=== PATIENT | female | born 1955 | race Caucasian/White ===

== ENCOUNTER 2019-12-27 01:10 | Outpatient (CLI) | payer MEDICARE, BC, SELFPAY ==
[2019-12-27 19:08] LABS: SARS-CoV-2 RNA PCR Negative
== END 2019-12-27 01:11 | disposition home or self-care (01) ==
LOC: ANHCOVIDDT 01:11
PROVIDERS: PCP Family Medicine; Visit Provider Internal Medicine Gastroenterology
DX: Z01.812 Encounter for preprocedural laboratory examination (principal); Z20.828 Contact with and (suspected) exposure to other viral communicable diseases
CPT/HCPCS: 87635; C9803; U0003

== ENCOUNTER 2019-12-29 01:16 | Day surgery (SDC) | payer MEDICARE, SELFPAY ==
[2019-12-22 15:38] VITALS: BMI 25.6
[2019-12-29 06:25] VITALS: BP 147/99; PULSE 85; RESP 20; TEMP 36.5; O2SAT 100; BMI 28.9
[2019-12-29] MEDS: LACTATED RINGERS 1,000 ML 150 ML IV CONT (06:35)
--- NOTE | 2019-12-29 06:44 | P.HP_ITS ---
History of Present Illness History of Present Illness Consent: Risks, benefits, and alternatives have been discussed and questions answered. Patient agrees to proceed with procedure. Chief complaint: Hx Colon Polyps Narrative: Divina Frazier is a 64 year old W female Referred for screening colonoscopy. Last colonoscopy was 7 years ago which time a small cecal adenomatous polyp was removed. Patient has no symptoms. No interval complaints. No family history of colon polyps or colon cancer. [facility] Past Medical History Medical History Eczema Essential hypertension Mild intermittent asthma without complication Seasonal depression Vitamin D deficiency Surgical History Surgical History (Updated 12/29/19 @ 06:46 by Rishi Baker MD) H/O removal of cyst History of surgery on right wrist S/P tonsillectomy and adenoidectomy Social History Social History Smoking status: Smoker, status unknown Second hand tobacco smoke exposure: No Smoking end date: 06/15/09 Alcohol intake: current Meds Home Medications and Allergies Home Medications Medication Instructions Recorded Confirmed Type dicyclomine 10 mg capsule 10 mg PO TID PRN #90 cap 05/27/19 12/22/19 Rx clobetasol 0.05 % topical cream 1 applic TOPICAL BID #60 gm 06/03/19 12/22/19 Rx albuterol sulfate 90 mcg/actuation 1 puff INHALATION Q4H PRN 07/08/19 12/22/19 History aerosol inhaler hydrochlorothiazide 25 mg tablet 25 mg PO DAILY 07/08/19 12/22/19 History lisinopril 40 mg tablet 40 mg PO DAILY 07/08/19 12/22/19 History lorazepam 0.5 mg tablet 0.5 mg PO TID PRN 07/08/19 12/22/19 History metoprolol succinate 100 mg 100 mg PO DAILY 07/08/19 12/22/19 History capsule sprinkle, ext. release 24 hr amlodipine 10 mg tablet See Rx Instructions .ROUTE 10/05/19 12/22/19 Rx .COMPLEX #30 tablet beclomethasone dipropionate 80 See Rx Instructions .ROUTE 10/11/19 12/22/19 Rx mcg/actuation HFA breath activated .COMPLEX #10.6 gm aerosol gabapentin 300 mg PO DAILY PRN 12/22/19 12/22/19 History Allergies Allergy/AdvReac Type Severity Reaction Status Date / Time No Known Allergies Allergy Mild Verified 12/29/19 06:23 Vital Signs Vital Signs - 24 hr 12/29/19 06:25 Temperature 36.5 C Pulse Rate 85 Respiratory Rate 20 Blood Pressure 147/99 H Pulse Oximetry 100 Exam Const: Orientation/consciousness: patient oriented x3 Resp: Auscultation: clear to auscultation bilaterally Cardio: Rate: regular rate Rhythm: regular rhythm Heart sounds: no murmurs GI: GI Palp: Yes Soft to palpation, No Tenderness to palpation present (GI), Yes No hepatosplenomegaly present and No Palpable mass present Auscultation: normal bowel sounds Neuro: General: patient oriented x3 and no focal motor deficits Extrem: General: no pedal edema Assessment and Plan Additional Plan screening colonoscopy secondary history of colonic polyps
--- NOTE | 2019-12-29 06:51 | WPDANESEPPF ---
Anes - Initial Pre Proc Eval Procedure: Operation Date: 12/29/19 07:30 Proposed Procedures p Screening Colonoscopy - Rishi Baker MD Date/Time: 12/29/19 06:51 Surgeon: Rishi Baker MD Pre Op Diagnosis: Hx Colon Polyps Patient Data Age: 64 Gender: F Height: 5 ft 2 in Weight: 71.7 kg Last Vital Signs Temp 36.5 C 12/29/19 06:25 Pulse 85 12/29/19 06:25 Resp 20 12/29/19 06:25 BP 147/99 H 12/29/19 06:25 Pulse Ox 100 12/29/19 06:25 Allergies Allergy/AdvReac Type Severity Reaction Status Date / Time No Known Allergies Allergy Mild Verified 12/29/19 06:23 Home Medications Medication Instructions Recorded Confirmed Type dicyclomine 10 mg capsule 10 mg PO TID PRN #90 cap 05/27/19 12/22/19 Rx clobetasol 0.05 % topical cream 1 applic TOPICAL BID #60 gm 06/03/19 12/22/19 Rx albuterol sulfate 90 mcg/actuation 1 puff INHALATION Q4H PRN 07/08/19 12/22/19 History aerosol inhaler hydrochlorothiazide 25 mg tablet 25 mg PO DAILY 07/08/19 12/22/19 History lisinopril 40 mg tablet 40 mg PO DAILY 07/08/19 12/22/19 History lorazepam 0.5 mg tablet 0.5 mg PO TID PRN 07/08/19 12/22/19 History metoprolol succinate 100 mg 100 mg PO DAILY 07/08/19 12/22/19 History capsule sprinkle, ext. release 24 hr amlodipine 10 mg tablet See Rx Instructions .ROUTE 10/05/19 12/22/19 Rx .COMPLEX #30 tablet beclomethasone dipropionate 80 See Rx Instructions .ROUTE 10/11/19 12/22/19 Rx mcg/actuation HFA breath activated .COMPLEX #10.6 gm aerosol gabapentin 300 mg PO DAILY PRN 12/22/19 12/22/19 History Patient hx anesthesia problems: none Family hx anesthesia problems: none PMFSH Past Medical History Medical History Eczema Essential hypertension Mild intermittent asthma without complication Seasonal depression Vitamin D deficiency Surgical History Surgical History H/O removal of cyst History of surgery on right wrist S/P tonsillectomy and adenoidectomy Family History Family History Father Family history of mental disorder Mother Hypertension Sibling Hypertension Social History Social History Smoking status: Smoker, status unknown Second hand tobacco smoke exposure: No Smoking end date: 06/15/09 Alcohol intake: current Anes - Eval Final PreProcedure Day of Procedure 12/29/19 06:51 Patient weight: overweight Heart: regular rate and rhythm Lungs: clear to auscultation Airway: Mallampati scale class II Neurological: alert and oriented Last oral intake: >/= 8 hours ASA classification: II Emergent: no Anesthetic plan: proceed Anesthesia type and monitoring: general GIVS and standard monitoring Informed Consent: The patient's anesthetic plan and its attendant risks and benefits were discussed with the patient/family/POA. Questions were solicited and answers provided to the satisfaction of the patient/family/POA.
[2019-12-29 07:41] VITALS: BP 133/82; PULSE 62; RESP 20; O2SAT 97
[2019-12-29 07:51] VITALS: BP 132/92; PULSE 66; RESP 20; O2SAT 99
[2019-12-29 08:01] VITALS: BP 151/97; PULSE 62; RESP 20; O2SAT 99
== END 2019-12-29 08:25 | disposition home or self-care (01) ==
PROVIDERS: PCP Family Medicine; Visit Provider Internal Medicine Gastroenterology
PROC: 0DJD8ZZ Inspection of Lower Intestinal Tract, Via Natural or Artificial Opening Endoscopic (ICD-10-PCS; CPT 45378; principal; 2019-12-29 07:30)
DX: Z12.11 Encounter for screening for malignant neoplasm of colon (principal); Z86.010 Personal history of colon polyps; I10 Essential (primary) hypertension; J45.20 Mild intermittent asthma, uncomplicated; E55.9 Vitamin D deficiency, unspecified; L30.9 Dermatitis, unspecified; Z87.891 Personal history of nicotine dependence
CPT/HCPCS: G0105; J2704; J7120

== ENCOUNTER 2020-04-25 06:33 | Outpatient (CLI) | payer MEDICARE, SELFPAY ==
[2020-04-25 07:15] LABS: Hematocrit 38.7 % (37.0-47.0); Hemoglobin 13.3 g/dL (12.0-15.0); Mean Corpuscular HGB Conc 34.4 g/dl (32-36); Mean Corpuscular Hemoglobin 32.4 pg (26-34); Mean Corpuscular Volume 94.4 fl (80-100); Mean Platelet Volume 11.3 fl (7.4-10.4); Platelet Count Result 215 k/mm3 (150-375); Red Cell Distribution Width 12.9 % (11.5-14.5); White Blood Count 4.7 K/mm3 (4.5-10.0)
[2020-04-25 07:25] LABS: Alanine Aminotransferase 31 U/L (4-35); Albumin Level 4.5 g/dL (3.5-5.1); Alkaline Phosphatase 60 U/L (38-126); Anion Gap 7 mmol/L (8-16); Aspartate Amino Transferase 33 U/L (14-36); Bilirubin,Total 0.4 mg/dL (0.2-1.3); Blood Urea Nitrogen 13 mg/dL (7-17); Calcium 9.8 mg/dL (8.4-10.2); Carbon Dioxide 33 mmol/L (22-30); Chloride 101 mmol/L (98-107); Cholesterol 248 mg/dL (0-200); Estimated Glomerular Filt Rate > 60; Glucose 101 mg/dL (65-105); HDL Direct 72 mg/dL; Potassium 4.2 mmol/L (3.4-5.0); Sodium 141 mmol/L (137-145); Triglycerides 111 mg/dL (<150)
[2020-04-25 07:36] LABS: LDL Cholesterol Direct 141 mg/dL
== END 2020-04-25 06:34 | disposition home or self-care (01) ==
PROVIDERS: PCP Family Medicine; Visit Provider Family Medicine
DX: R53.83 Other fatigue (principal); E78.2 Mixed hyperlipidemia; I10 Essential (primary) hypertension
CPT/HCPCS: 36415; 80053; 80061; 84443; 85027

== ENCOUNTER 2021-08-16 07:12 | Outpatient (CLI) | payer MEDICARE, SELFPAY ==
--- NOTE | ~2021-08-16 | MM_ITS ---
EXAMINATION: MM screening [facility] [place] BI w alex HISTORY: Screening mammogram TECHNIQUE: Craniocaudal and mediolateral oblique 3-D tomosynthesis images were obtained and synthetic 2-D images were generated. CAD analysis was submitted and interpreted. COMPARISON: 03/21/2019, 08/01/2016, 11/02/2012 BREAST PARENCHYMAL COMPOSITION: There are scattered areas of fibroglandular density. FINDINGS: There is no evidence of suspicious mass, calcification, or architectural distortion to sugg est malignancy in either breast. There has been no suspicious interval change. IMPRESSION: 1. No mammographic evidence of malignancy. 2. Recommend routine screening mammography in one year. BI-RADS Category 1: Negative Reviewed, dictated and finalized at location A. CONSULTANT
== END 2021-08-16 07:13 | disposition home or self-care (01) ==
LOC: ANHIMG 07:15
PROVIDERS: PCP Family Medicine; Visit Provider Family Medicine
DX: Z12.31 Encounter for screening mammogram for malignant neoplasm of breast (principal)
CPT/HCPCS: 77063; 77067

== ENCOUNTER 2021-09-11 06:56 | Outpatient (CLI) | payer MEDICARE, SELFPAY ==
[2021-09-11 08:05] LABS: Alanine Aminotransferase 20 U/L (4-35); Albumin Level 4.4 g/dL (3.5-5.1); Alkaline Phosphatase 65 U/L (38-126); Anion Gap 7 mmol/L (8-16); Aspartate Amino Transferase 31 U/L (14-36); Bilirubin,Total 0.4 mg/dL (0.2-1.3); Blood Urea Nitrogen 17 mg/dL (7-17); Calcium 9.3 mg/dL (8.4-10.2); Carbon Dioxide 28 mmol/L (22-30); Chloride 101 mmol/L (98-107); Cholesterol 251 mg/dL (0-200); Estimated Glomerular Filt Rate > 60; Glucose 98 mg/dL (65-110); HDL Direct 74 mg/dL; Hematocrit 39.5 % (37.0-47.0); Hemoglobin 13.4 g/dL (12.0-15.0); Mean Corpuscular HGB Conc 33.9 g/dl (32-36); Mean Corpuscular Volume 97.3 fl (80-100); Platelet Count Result 208 k/mm3 (150-375); Potassium 4.3 mmol/L (3.4-5.0); Red Blood Count 4.06 M/mm3 (4.2-5.4); Red Cell Distribution Width 12.8 % (11.5-14.5); Sodium 136 mmol/L (137-145); Triglycerides 130 mg/dL (<150); White Blood Count 4.7 K/mm3 (4.5-10.0)
[2021-09-11 08:16] LABS: LDL Cholesterol Direct 111 mg/dL
[2021-09-11 08:47] LABS: Vitamin D 25 Hydroxy 43.5 ng/mL
== END 2021-09-11 06:57 | disposition home or self-care (01) ==
LOC: ANHLAB 06:59
PROVIDERS: PCP Family Medicine; Visit Provider Family Medicine
DX: R53.83 Other fatigue (principal); E78.2 Mixed hyperlipidemia; E55.9 Vitamin D deficiency, unspecified
CPT/HCPCS: 36415; 80053; 80061; 82306; 84443; 85027